=== PATIENT | male | born 1975 | race African-American/Black ===

== ENCOUNTER 2021-03-10 22:29 | Emergency (ER) | payer OTHER, SELFPAY ==
[~2021-03-10] VITALS: Ht 185.4 cm; Wt 113.0 kg
[~2021-03-10 22:29] MED LIST: NOCURR
[2021-03-10 22:37] VITALS: BP 143/93
== END 2021-03-10 23:48 | disposition left against medical advice (07) ==
LOC: EMS 22:29
DX: T14.90XA Injury, unspecified, initial encounter (principal); Z53.21 Procedure and treatment not carried out due to patient leaving prior to being seen by health care provider; X58.XXXA Exposure to other specified factors, initial encounter